=== PATIENT | male | born 2000 | race Caucasian/White ===

== ENCOUNTER 2021-06-23 03:46 | Emergency (ER) | payer OTHER ==
[~2021-06-23] VITALS: Ht 175.3 cm; Wt 81.6 kg
[2021-06-23 03:50] VITALS: BP 137/75
[2021-06-23 03:58] VITALS: BP 137/75
--- NOTE | 2021-06-23 03:59 | NUR ---
PATIENT BIB [facility]. PATIENT EXAMINED BY DR. ZARATE. PATIENT MEDICALLY CLEARED AND RELEASED IN CUSTODY IN STABLE CONDITION. ORIGINAL PRE-BOOK FORM GIVEN TO OFFICER JOSELYN.
== END 2021-06-23 03:58 ==
LOC: MED 03:46
DX: F10.129 Alcohol abuse with intoxication, unspecified (principal); Z02.89 Encounter for other administrative examinations; V98.8XXA Other specified transport accidents, initial encounter; Y93.89 Activity, other specified; Y92.89 Other specified places as the place of occurrence of the external cause; Y99.8 Other external cause status; Y90.9 Presence of alcohol in blood, level not specified
CPT/HCPCS: 99283